=== PATIENT | female | born 1945 | race Caucasian/White ===

== ENCOUNTER → 2018-04-28 | Outpatient (CLI) | payer MEDICARE, OTHER | END | disposition home or self-care (01) | LOC: LAB SHORT 11:35 → LAB 11:35 | PROVIDERS: Nurse Practitioner Women's Health | DX: Z12.4 Encounter for screening for malignant neoplasm of cervix (principal); Z91.89 Other specified personal risk factors, not elsewhere classified | CPT/HCPCS: 87624; G0123 ==

== ENCOUNTER 2021-10-13 11:26 | Emergency (ER) | payer OTHER ==
[~2021-10-13] VITALS: Ht 200.7 cm; Wt 72.6 kg
[~2021-10-13 11:26] MED LIST: ACETAMINOPHEN500 MG PO; Aspir 8181 MG PO; Betamethasone D60 ML TOP; FLUO60T TOP; LOSA50 PO; MELO7.5 PO; Monodox100 MG PO; ROXICODONE5 MG PO; SPIR25 PO
[2021-10-13] MEDS ORDERED: ALLO100 (11:40)
[2021-10-13 11:49] LABS: BASOPHILS ABSOLUTE AUTO 0.04 K/mm3 (0.00-0.23); BASOPHILS PERCENT AUTO 1 % (0-2); EOSINOPHILS ABSOLUTE AUTO 0.11 K/mm3 (0.00-0.68); EOSINOPHILS PERCENT AUTO 2 % (0-6); Hematocrit 42.7 % (33.0-51.0); Hemoglobin 14.9 g/dL (11.5-16.0); IMMATURE GRAN PERCENT AUTO 0 % (0-1); LYMPHOCYTES ABSOLUTE AUTO 2.51 K/mm3 (0.84-5.20); LYMPHOCYTES PERCENT AUTO 42 % (21-46); MONOCYTES ABSOLUTE AUTO 0.45 K/mm3 (0.16-1.47); MONOCYTES PERCENT AUTO 8 % (4-13); Mean Corpuscular HGB 30.1 pg (26.0-34.0); Mean Corpuscular HGB Conc 34.9 g/dL (31.5-36.5); Mean Corpuscular Volume 86 fL (80-100); Mean Platelet Volume 10.4 fL (9.1-12.4); NEUTROPHILS ABSOLUTE AUTO 2.87 K/mm3 (1.96-9.15); NEUTROPHILS PERCENT AUTO 48 % (41-73); Platelet Count 258 K/mm3 (150-400); RDW Coefficient Variation 13.4 % (11.7-14.2); RDW Standard Deviation 41.6 fL (35.1-46.3); Red Blood Cell Count 4.95 M/mm3 (3.80-5.20); White Blood Cell Count 5.98 K/mm3 (4.00-11.30)
[2021-10-13 12:11] LABS: Alanine Aminotransfer (ALT/SGP 27 U/L (12-78); Albumin, Blood 3.3 g/dL (3.4-5.0); Albumin/Globulin Ratio 0.8 (0.8-1.8); Alk Phos 95 U/L (50-136); Anion Gap 6 mmol/L (6-16); Aspartate Aminotrans (AST/SGOT 20 U/L (12-37); Bilirubin, Total 0.5 mg/dL (0.1-1.0); Blood Urea Nitrogen 21 mg/dL (8-24); Bun/Creatinine Ratio 28.6 (12.0-20.0); CO2, Blood 25 mmol/L (21-32); Calcium, Blood 9.1 mg/dL (8.5-10.1); Chloride, Blood 111 mmol/L (98-108); Creatinine, Blood 0.73 mg/dL (0.40-1.00); Globulin, Blood 3.9 g/dL (2.2-4.0); Glomerular Filtration Rate >60 (60-); Glucose, Blood 90 mg/dL (70-99); Potassium, Blood 3.8 mmol/L (3.5-5.5); Sodium, Blood 142 mmol/L (136-145); Total Protein, Blood 7.2 g/dL (6.4-8.2); Troponin I <0.015 ng/mL (0.000-0.040)
[2021-10-13] MEDS ORDERED: Catapres0.1 MG PO (14:54)
[2021-10-13] MEDS ORDERED: Valium5 MG PO (14:54)
== END 2021-10-13 15:15 | disposition home or self-care (01) ==
LOC: ER 11:26
PROVIDERS: Emergency Medicine
DX: I10 Essential (primary) hypertension (principal); Z79.899 Other long term (current) drug therapy
CPT/HCPCS: 36415; 71045; 80053; 84484; 85025; 93005; 93010; 96374; 99284-25; A9270

== ENCOUNTER 2022-08-16 11:32 | Emergency (ER) | payer OTHER ==
[~2022-08-16] VITALS: Ht 167.6 cm; Wt 83.9 kg
[~2022-08-16 11:32] MED LIST changes: +ALLO100; +Catapres0.1 MG PO; +Valium5 MG PO
[2022-08-16 12:48] LABS: BASOPHILS ABSOLUTE AUTO 0.03 K/mm3 (0.00-0.23); BASOPHILS PERCENT AUTO 0 % (0-2); EOSINOPHILS ABSOLUTE AUTO 0.13 K/mm3 (0.00-0.68); EOSINOPHILS PERCENT AUTO 2 % (0-6); Hematocrit 40.5 % (33.0-51.0); Hemoglobin 14.3 g/dL (11.5-16.0); IMMATURE GRAN ABSOLUTE AUTO 0.03 K/mm3 (0.00-0.10); IMMATURE GRAN PERCENT AUTO 0 % (0-1); LYMPHOCYTES ABSOLUTE AUTO 2.57 K/mm3 (0.84-5.20); LYMPHOCYTES PERCENT AUTO 32 % (21-46); MONOCYTES ABSOLUTE AUTO 0.52 K/mm3 (0.16-1.47); MONOCYTES PERCENT AUTO 7 % (4-13); Mean Corpuscular HGB 29.5 pg (26.0-34.0); Mean Corpuscular HGB Conc 35.3 g/dL (31.5-36.5); Mean Corpuscular Volume 84 fL (80-100); Mean Platelet Volume 10.9 fL (9.1-12.4); NEUTROPHILS ABSOLUTE AUTO 4.78 K/mm3 (1.96-9.15); NEUTROPHILS PERCENT AUTO 59 % (41-73); Platelet Count 242 K/mm3 (150-400); RDW Coefficient Variation 12.7 % (11.7-14.2); RDW Standard Deviation 38.6 fL (35.1-46.3); Red Blood Cell Count 4.85 M/mm3 (3.80-5.20); White Blood Cell Count 8.06 K/mm3 (4.00-11.30)
[2022-08-16 13:18] LABS: Albumin, Blood 3.4 g/dL (3.4-5.0); Albumin/Globulin Ratio 0.9 (0.8-1.8); Bilirubin, Total 0.5 mg/dL (0.1-1.0); Bun/Creatinine Ratio 27.1 (12.0-20.0); Calcium, Blood 8.9 mg/dL (8.5-10.1); Creatinine, Blood 0.63 mg/dL (0.40-1.00); Globulin, Blood 3.7 g/dL (2.2-4.0); Total Protein, Blood 7.1 g/dL (6.4-8.2)
== END 2022-08-16 16:32 | disposition home or self-care (01) ==
LOC: ER 11:32
PROVIDERS: Physician Assistant
DX: I10 Essential (primary) hypertension (principal); Z79.899 Other long term (current) drug therapy; Z79.82 Long term (current) use of aspirin
CPT/HCPCS: 36415; 71046; 80053; 84484; 85025; 93005; 93010

== ENCOUNTER → 2024-05-12 | Outpatient (CLI) | payer OTHER | LOC: LAB 07:21 → LAB SHORT 07:21 | DX: D48.5 Neoplasm of uncertain behavior of skin (principal) | CPT/HCPCS: 88341; 88342 ==

== ENCOUNTER 2024-07-07 10:51 | Emergency (ER) | payer OTHER ==
[~2024-07-07] VITALS: Ht 167.6 cm; Wt 83.9 kg
[2024-07-07 10:52] VITALS: BP 142/89
[2024-07-07] MEDS ORDERED: OxyCODONE 5 mg/Acetamin 325 mg TABLET PO ONE (11:30)
[2024-07-07] MEDS ORDERED: OXAYDO5 M1 PO (11:56)
== END 2024-07-07 12:19 | disposition home or self-care (01) ==
LOC: ER 10:51
DX: S89.91XA Unspecified injury of right lower leg, initial encounter (principal); I10 Essential (primary) hypertension; X58.XXXA Exposure to other specified factors, initial encounter; Z79.82 Long term (current) use of aspirin; Z79.899 Other long term (current) drug therapy
CPT/HCPCS: 73560-RT; 99283-25; A9270

== ENCOUNTER → 2024-07-20 | Outpatient (CLI) | payer OTHER ==
[~2024-07-20] MED LIST changes: +OXAYDO5 M1 PO
== END ==
LOC: LAB SHORT 12:29 → LAB 12:29
DX: R59.0 Localized enlarged lymph nodes (principal); C00.9 Malignant neoplasm of lip, unspecified
CPT/HCPCS: 88173

== ENCOUNTER → 2024-07-27 | Outpatient (CLI) | payer OTHER | LOC: LAB 07:30 → LAB SHORT 07:30 | DX: J35.03 Chronic tonsillitis and adenoiditis (principal); R59.0 Localized enlarged lymph nodes | CPT/HCPCS: 88305 ==

== ENCOUNTER 2024-08-04 10:59 | Day surgery (SDC) | payer OTHER ==
[~2024-08-04] VITALS: Ht 167.6 cm; Wt 83.1 kg
[~2024-08-04 10:59] MED LIST changes: +Lactated Ringer's 1,000 ML IV ONE
[2024-08-04] MEDS ORDERED: AMLODIPINE BESYL5 MG PO (11:30)
[2024-08-04] MEDS ORDERED: FINA5 PO (11:31)
[2024-08-04] MEDS ORDERED: NEURONTIN300 MG PO (11:31)
[2024-08-04] MEDS ORDERED: Lactated Ringer's 1,000 ML IV ONE (11:51)
[2024-08-04] MEDS ORDERED: propofoL 20 ML IV ONE (12:37)
[2024-08-04] MEDS ORDERED: FentaNYL Citrate 50 MCG/ML 2 ML Injection ONE ×2 (12:37→13:52)
--- NOTE | 2024-08-04 12:46 | NUR ---
08/04/24 1246 Lucero Quinones 1235: PARTIAL UPPER DENTURE REMOVED AND PLACED IN CUP IN LOCKER. GLASSES PLACED IN LOCKER.
[2024-08-04] MEDS ORDERED: EPINEPhrine HCl 1 MG/ML 1ML Amp XX ONE (13:13)
[2024-08-04 14:13] VITALS: BP 161/77
[2024-08-04] MEDS ORDERED: OxyCODONE HCL 5 MG TAB ONE (14:28)
== END 2024-08-04 14:44 | disposition home or self-care (01) ==
LOC: ORSCSDS 10:59
PROVIDERS: Otolaryngology
PROC: 07B20ZX Excision of Left Neck Lymphatic, Open Approach, Diagnostic (ICD-10-PCS; principal; 2024-08-04 12:30)
DX: C79.89 Secondary malignant neoplasm of other specified sites (principal); I89.8 Other specified noninfective disorders of lymphatic vessels and lymph nodes; J35.1 Hypertrophy of tonsils; I10 Essential (primary) hypertension; Z79.899 Other long term (current) drug therapy
CPT/HCPCS: 88305; A9270; J0171; J2704; J3010; J7120